=== PATIENT | male | born 1995 | race Caucasian/White ===

== ENCOUNTER 2019-11-01 19:50 | Emergency (ER) | payer SELFPAY ==
[~2019-11-01 19:50] MED LIST: Sodium Chloride 0.9% 100 ML BAG ONE
[2019-11-01] MEDS ORDERED: Ibuprofen 800 MG TAB ONE (20:10)
[2019-11-01] MEDS ORDERED: Acetaminophen 500 MG TAB ONE (20:10)
--- NOTE | 2019-11-01 20:41 | RAD ---
TWO VIEWS LEFT FEMUR: 11/01/19 HISTORY: Pain. Nail to the upper thigh. FINDINGS: There appears to be radiopaque nail along the proximal aspect of the left lower extremity. Nail appea rs to have violated the cortex, based upon the images provided. Better evaluation with CT is recommen ded. IMPRESSION: Radiopaque nail along the proximal left lower extremity which appears to have violated the cortex. CT is recommended. POS: PPP
[2019-11-01] MEDS ORDERED: CEFAZOLIN 1 GM VIAL ONE (21:05)
== END 2019-11-01 21:20 | disposition short-term general hospital (02) ==
LOC: MADERS 19:50
DX: S72.302B Unspecified fracture of shaft of left femur, initial encounter for open fracture type I or II (principal); W29.4XXA Contact with nail gun, initial encounter
CPT/HCPCS: J0690; J3490